=== PATIENT | male | born 1980 | race African-American/Black ===

== ENCOUNTER 2017-01-09 09:27 | Emergency (ER) | payer SELFPAY ==
[~2017-01-09] VITALS: Ht 170.2 cm; Wt 91.6 kg
[2017-01-09 09:29] VITALS: TEMP 36.4; Ht 170.2 cm; Wt 91.6 kg
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
[2017-01-09] MEDS ORDERED: IBUP-1451 PO (10:21)
[2017-01-09] MEDS ORDERED: ACET-1256 PO (10:24)
[2017-01-09 10:28] LABS: BUN/CREATININE RATIO 9.8 (10-20); CALCIUM 8.8 mg/dl (8.5-10.1); CREATININE 0.98 mg/dl (0.60-1.40); POTASSIUM 3.5 mmol/L (3.5-5.1)
[2017-01-09 10:34] LABS: HEMATOCRIT 41.1 % (42-52); MEAN CORPUSCULAR HEMOGLOBIN 29.1 pg (25-34); MEAN CORPUSCULAR HGB CONC 33.8 g/dl (32-36); MEAN PLATELET VOLUME 12.6 fL (7.4-10.4); PLATELET COUNT 110 K/uL (130-400); RED BLOOD COUNT 4.78 M/uL (4.7-6.1); WHITE BLOOD COUNT 9.01 K/uL (4.8-10.8)
[2017-01-09 10:38] LABS: BASO ABS # 0.08 K/uL (0-0.2); BASOPHIL % 0.9 % (0-2); COMPLETE YES; EOSINOPHIL % 0.9 %; GIANT PLATELETS 3+; LYMPHOCYTE % 15.5 %; NEUTROPHILS % 60.3 %; PLT ESTIMATE DECREASED; VACUOLIZATION 1+; VARIANT LYM ABS # 1.55 K/uL; VARIANT LYMPHOCYTE % 17.2 %
[2017-01-09] MEDS ORDERED: OPTIRAY 320 IV PRN (10:45)
--- NOTE | 2017-01-09 11:22 | DIAGNOSTIC IMAGING REPORT ---
CT SCAN OF THE ABDOMEN AND PELVIS WITH IV CONTRAST CLINICAL HISTORY: Left lower quadrant abdominal pain. COMPARISON STUDY: No priors. TECHNIQUE: Following the IV administration of 95 cc of Optiray 320, CT scan of the abdomen and pelvis is performed from the lung bases to the proximal femora. Images are reviewed in the axial, sagittal, and coronal planes. IV contrast was administered without complication. A dose lowering technique was utilized adhering to the principles of ALARA. CT DOSE: 732.41 mGycm FINDINGS: Lung bases: The heart is normal in size and without pericardial effusion. The lung bases are clear. Liver: The contrast-enhanced liver is normal in size, contour, and attenuation. There is no intrahepatic biliary ductal dilatation. The hepatic veins and portal veins are patent. Gallbladder: Unremarkable. Spleen: Normal in size and attenuation. Pancreas: Unremarkable. Adrenal glands: Unremarkable. Kidneys: The contrast enhanced kidneys are normal in size and without hydronephrosis. The kidneys enhance symmetrically. Abdominal vasculature: The abdominal aorta is normal in course and caliber. Bowel: The small bowel and colon are normal in course and caliber. The appendix is well-visualized and normal. Peritoneum: There is no intraperitoneal free air or abdominal ascites. There is a fat-containing umbilical hernia. Lymphadenopathy: None. Pelvic viscera: The bladder, prostate, and seminal vesicles are normal as visualized. Skeletal structures: No lytic or blastic lesions are seen. 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 A disc bulge is seen at this level. A hemitransitional left lumbosacral segment is incidentally noted. IMPRESSION: There are no acute infectious or inflammatory findings in the abdomen or pelvis. Electronically signed by: Mata Rojas M.D. 01/09/2017 11:21 AM Dictated Date/Time: 01/09/2017 11:16 AM
[2017-01-09 11:30] VITALS: BP 109/61; PULSE 65; O2SAT 99
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
== END 2017-01-09 12:10 | disposition home or self-care (01) ==
LOC: C.EDB 09:28
DX: K64.9 Unspecified hemorrhoids (principal); K62.5 Hemorrhage of anus and rectum; F17.200 Nicotine dependence, unspecified, uncomplicated